=== PATIENT | male | born 1950 | race Caucasian/White ===

== ENCOUNTER 2017-03-21 06:33 | Inpatient (IN) | payer OTHER ==
[2017-03-21] MEDS: SCOPOLAMINE 1.5MG PATCH TD SCH (07:03)
[2017-03-21] MEDS ORDERED: SODIUM CHLORIDE 0.9% 1000ML 1,000 ML IV ONE (07:30)
[2017-03-21] MEDS ORDERED: SODIUM CHLORIDE 20 ML 40 ML ONE (08:26)
[2017-03-21] MEDS ORDERED: MIDAZOLAM 2 MG/2 ML SOL ONE (08:27)
[2017-03-21] MEDS ORDERED: MORPHINE SULFATE 0.5 MG/ML SOL ONE (08:27)
[2017-03-21] MEDS ORDERED: LIDOCAINE HCL 1% MPF SOL ONE (08:27)
[2017-03-21] MEDS ORDERED: PROPOFOL 500 MG/50 ML EMU IV ONE (08:27)
[2017-03-21] MEDS ORDERED: ONDANSETRON HCL 4 MG/2 ML SOL ONE (08:27)
[2017-03-21] MEDS ORDERED: DEXAMETHASONE 20 MG/5 ML (4 MG/ML SOL) ONE (08:27)
[2017-03-21] MEDS ORDERED: KETAMINE HYDROCHLORIDE 50 MG/ML SOL ONE (08:28)
[2017-03-21] MEDS ORDERED: SODIUM CHLORIDE 0.9% 1000ML 1,000 ML IV SCH (08:30)
[2017-03-21] MEDS: TRANEXAMIC ACID 100 MG/ML SOL ONE ×2 (09:56→10:39)
[2017-03-21] MEDS: BUPIVACAINE LIPOSOME 20 ML SUS ONE ×2 (09:56→10:38)
[2017-03-21] MEDS ORDERED: PHENYLEPHRINE HYDROCHLORIDE 10 MG/ML SOL ONE (10:05)
[2017-03-21] MEDS ORDERED: CEFAZOLIN SODIUM 1 GM PDS ONE ×2 (10:05→17:04)
[2017-03-21] MEDS ORDERED: PROPOFOL 10 MG/ML EMU IV ONE ×3 (10:10→10:46)
[2017-03-21] MEDS ORDERED: EPHEDRINE SULFATE 50 MG/ML SOL ONE (10:30)
[2017-03-21] MEDS ORDERED: MAGNESIUM HYDROXIDE 30 ML SUS PO PRN (10:45)
[2017-03-21] MEDS ORDERED: ONDANSETRON 4 MG ODT BU PRN (10:45)
[2017-03-21] MEDS ORDERED: ALUMINUM/MAGNESIUM 30 ML SUS PO PRN (10:45)
[2017-03-21] MEDS ORDERED: SODIUM CHLORIDE 0.9% 500 ML 500 ML IV PRN (10:45)
[2017-03-21] MEDS ORDERED: DIPHENHYDRAMINE 50 MG/ML SOL IV PRN (10:45)
[2017-03-21] MEDS ORDERED: FLEET ENEMA PR PRN (10:45)
[2017-03-21] MEDS ORDERED: TEMAZEPAM 15MG 15 MG CAP PO PRN (10:45)
[2017-03-21] MEDS ORDERED: BISACODYL 10 MG SUP PR PRN (10:45)
[2017-03-21] MEDS ORDERED: ONDANSETRON HCL 4 MG/2 ML SOL IV PRN (10:45)
[2017-03-21] MEDS ORDERED: MORPHINE SULFATE 10 MG/ML SOL IM PRN (10:45)
[2017-03-21] MEDS ORDERED: ALBUTEROL HFA 60 PUFF/INHALER INH PRN (10:51)
[2017-03-21] MEDS ORDERED: HYDROMORPHONE 1 MG/ML SYRINGE IV PRN (11:00)
[2017-03-21] MEDS: DEXTROSE/SALINE 0.45% 1,000 ML IV SCH ×2 (12:03→22:54)
[2017-03-21] MEDS: SALME INH SCH ×2 (12:55→20:42)
[2017-03-21] MEDS: FLUTICASONE INH SCH ×2 (12:55→20:42)
[2017-03-21] MEDS: SODIUM CHLORIDE 0.9% FLUSH 10 ML SOL IV SCH ×2 (13:07→19:03)
[2017-03-21] MEDS: ACETAMINOPHEN 325 MG PO SCH ×3 (13:08→20:41)
[2017-03-21] MEDS: OXYCODONE HYDROCHLORIDE 5 MG TAB PO PRN ×3 (13:08→21:15)
[2017-03-21] MEDS ORDERED: SODIUM CHLORIDE 0.9% 100 ML 100 ML IV ONE (17:04)
[2017-03-21] MEDS: CEFAZOLIN SODIUM 1 GM PDS 3 GM in SODIUM CHLORIDE 0.9% 100 ML 100 ML IV SCH (17:33)
[2017-03-21] MEDS: CARVEDILOL 12.5 MG TAB PO SCH (20:41)
[2017-03-21] MEDS: SENNOSIDES A AND B 8.6 MG TAB PO SCH (20:42)
[2017-03-21] MEDS: ALLOPURINOL 100 MG TAB PO SCH (20:42)
[2017-03-22] MEDS: FLUTICASONE INH SCH ×4 (01:41→23:46)
[2017-03-22] MEDS: SALME INH SCH ×4 (01:41→23:46)
[2017-03-22] MEDS ORDERED: CEFAZOLIN SODIUM 1 GM PDS ONE (01:42)
[2017-03-22] MEDS ORDERED: SODIUM CHLORIDE 0.9% 100 ML 100 ML IV ONE (01:42)
[2017-03-22] MEDS: CEFAZOLIN SODIUM 1 GM PDS 3 GM in SODIUM CHLORIDE 0.9% 100 ML 100 ML IV SCH (01:54)
[2017-03-22] MEDS: OXYCODONE HYDROCHLORIDE 5 MG TAB PO PRN ×7 (02:05→20:35)
[2017-03-22] MEDS: SODIUM CHLORIDE 0.9% FLUSH 10 ML SOL IV SCH ×3 (04:55→20:37)
[2017-03-22 07:22] LABS: MEAN CORPUSCULAR HGB CONC 32.8 gm/dl (32.0-36.0)
[2017-03-22] MEDS: DIAZEPAM 5 MG TAB PO PRN ×2 (08:03→17:11)
[2017-03-22] MEDS: FINASTERIDE 5 MG TAB PO SCH (08:34)
[2017-03-22] MEDS: HYDROCHLOROTHIAZIDE 25 MG TAB PO SCH (08:34)
[2017-03-22] MEDS: AMLODIPINE 5 MG TAB PO SCH (08:34)
[2017-03-22] MEDS: ALLOPURINOL 100 MG TAB PO SCH ×2 (08:35→20:34)
[2017-03-22] MEDS: CARVEDILOL 12.5 MG TAB PO SCH ×2 (08:35→20:34)
[2017-03-22] MEDS: ATORVASTATIN CALCIUM 80 MG TAB PO SCH (08:36)
[2017-03-22] MEDS: CHOLECALCIFEROL 1,000 IU TAB PO SCH (08:36)
[2017-03-22] MEDS: FLUOXETINE HYDROCHLORIDE 10 MG CAP PO SCH (08:36)
[2017-03-22] MEDS: LISINOPRIL 20 MG TAB PO SCH (08:36)
[2017-03-22] MEDS: RIVAROXABAN 10 MG TAB PO SCH (08:36)
[2017-03-22] MEDS ORDERED: ATORVASTATIN 10 MG TAB ONE (08:42)
[2017-03-22] MEDS: ACETAMINOPHEN 325 MG PO SCH ×4 (08:42→20:34)
[2017-03-22 08:46] VITALS: RESP 18
[2017-03-22] MEDS: DEXTROSE/SALINE 0.45% 1,000 ML IV SCH (14:23)
[2017-03-22] MEDS: SENNOSIDES A AND B 8.6 MG TAB PO SCH (20:34)
[2017-03-23] MEDS: OXYCODONE HYDROCHLORIDE 5 MG TAB PO PRN ×6 (00:49→20:30)
[2017-03-23] MEDS: SODIUM CHLORIDE 0.9% FLUSH 10 ML SOL IV SCH ×3 (04:26→20:29)
[2017-03-23 07:29] LABS: MEAN CORPUSCULAR HGB CONC 33.7 gm/dl (32.0-36.0)
[2017-03-23 07:32] LABS: CALCIUM 8.3 mg/dl (8.5-10.1); POTASSIUM 4.7 mMol/L (3.5-5.1)
[2017-03-23] MEDS: SALME INH SCH ×2 (08:37→20:28)
[2017-03-23] MEDS: FLUTICASONE INH SCH ×2 (08:37→20:28)
[2017-03-23] MEDS: ATORVASTATIN CALCIUM 80 MG TAB PO SCH (08:44)
[2017-03-23] MEDS: CARVEDILOL 12.5 MG TAB PO SCH ×2 (08:46→20:30)
[2017-03-23] MEDS: HYDROCHLOROTHIAZIDE 25 MG TAB PO SCH (08:47)
[2017-03-23] MEDS: AMLODIPINE 5 MG TAB PO SCH (08:47)
[2017-03-23] MEDS: FINASTERIDE 5 MG TAB PO SCH (08:48)
[2017-03-23] MEDS: FLUOXETINE HYDROCHLORIDE 10 MG CAP PO SCH (08:49)
[2017-03-23] MEDS: RIVAROXABAN 10 MG TAB PO SCH (08:50)
[2017-03-23] MEDS: ACETAMINOPHEN 325 MG PO SCH ×4 (08:50→20:29)
[2017-03-23] MEDS: CHOLECALCIFEROL 1,000 IU TAB PO SCH (08:50)
[2017-03-23] MEDS: LISINOPRIL 20 MG TAB PO SCH (08:51)
[2017-03-23] MEDS: ALLOPURINOL 100 MG TAB PO SCH ×2 (08:51→20:30)
[2017-03-23] MEDS: DIAZEPAM 5 MG TAB PO PRN ×2 (09:20→20:32)
[2017-03-23] MEDS: SENNOSIDES A AND B 8.6 MG TAB PO SCH (20:30)
[2017-03-24] MEDS: OXYCODONE HYDROCHLORIDE 5 MG TAB PO PRN ×3 (01:17→09:25)
[2017-03-24] MEDS: SODIUM CHLORIDE 0.9% FLUSH 10 ML SOL IV SCH ×2 (01:18→02:04)
[2017-03-24] MEDS: SCOPOLAMINE 1.5MG PATCH TD SCH (06:33)
[2017-03-24 06:37] VITALS: BP 120/73; PULSE 73; TEMP 98; O2SAT 92
[2017-03-24 07:28] LABS: MEAN CORPUSCULAR HGB CONC 33.7 gm/dl (32.0-36.0)
[2017-03-24 07:38] LABS: CALCIUM 8.6 mg/dl (8.5-10.1); POTASSIUM 4.5 mMol/L (3.5-5.1)
[2017-03-24] MEDS: SALME INH SCH (08:23)
[2017-03-24] MEDS: CARVEDILOL 12.5 MG TAB PO SCH (08:23)
[2017-03-24] MEDS: FLUTICASONE INH SCH (08:23)
[2017-03-24] MEDS: ATORVASTATIN CALCIUM 80 MG TAB PO SCH (08:24)
[2017-03-24] MEDS: AMLODIPINE 5 MG TAB PO SCH (08:24)
[2017-03-24] MEDS: HYDROCHLOROTHIAZIDE 25 MG TAB PO SCH (08:24)
[2017-03-24] MEDS: FLUOXETINE HYDROCHLORIDE 10 MG CAP PO SCH (08:25)
[2017-03-24] MEDS: FINASTERIDE 5 MG TAB PO SCH (08:25)
[2017-03-24] MEDS: ACETAMINOPHEN 325 MG PO SCH (08:25)
[2017-03-24] MEDS: CHOLECALCIFEROL 1,000 IU TAB PO SCH (08:26)
[2017-03-24] MEDS: RIVAROXABAN 10 MG TAB PO SCH (08:26)
[2017-03-24] MEDS: LISINOPRIL 20 MG TAB PO SCH (08:27)
[2017-03-24] MEDS: ALLOPURINOL 100 MG TAB PO SCH (08:27)
[2017-03-24] MEDS ORDERED: PNEUMOCOCCAL VACCINE 0.5 ML SOL IM ONE (09:30)
[2017-03-24] MEDS ORDERED: INFLUENZA HIGH DOSE VACCINE 0.5 ML SUS IM ONE (09:30)
== END 2017-03-24 11:40 | disposition home or self-care (01) | DRG 470 ==
LOC: UNDOADMIN 06:33 → ACUTE CARE 06:33
PROVIDERS: ADMIT Orthopaedic Surgery; ATTEND Orthopaedic Surgery
PROC: F01ZDFZ Gait and/or Balance Assessment using Assistive, Adaptive, Supportive or Protective Equipment (ICD-10-PCS; 2017-03-21)
PROC: F01ZBZZ Bed Mobility Assessment (ICD-10-PCS; 2017-03-21)
PROC: F01ZCZZ Transfer Assessment (ICD-10-PCS; 2017-03-21)
PROC: 0SRC0J9 Replacement of Right Knee Joint with Synthetic Substitute, Cemented, Open Approach (ICD-10-PCS; principal; 2017-03-21 09:30)
PROC: F02Z1ZZ Dressing Assessment (ICD-10-PCS; 2017-03-22)
PROC: F02Z0ZZ Bathing/Showering Assessment (ICD-10-PCS; 2017-03-22)
PROC: F02Z3ZZ Grooming/Personal Hygiene Assessment (ICD-10-PCS; 2017-03-22)
DX: M17.11 Unilateral primary osteoarthritis, right knee (principal); N18.3 Chronic kidney disease, stage 3 (moderate); I12.9 Hypertensive chronic kidney disease with stage 1 through stage 4 chronic kidney disease, or unspecified chronic kidney disease; Z96.653 Presence of artificial knee joint, bilateral; Z86.79 Personal history of other diseases of the circulatory system
CPT/HCPCS: 36415; 73560; 80048; 85027; 90662; 90732; 94150; 99070; J0690; J1100; J1200; J2250; J2274; J2405; A6219; A6232; G0008; J2001; J2704; Q3014

== ENCOUNTER 2017-05-02 11:14 | Outpatient (CLI) | payer OTHER ==
[2017-03-24 06:37] VITALS: O2SAT 92
== END 2017-05-02 11:15 | disposition home or self-care (01) | DRG 561 ==
LOC: CONVCARE 11:14
PROVIDERS: ATTEND Orthopaedic Surgery
DX: Z47.1 Aftercare following joint replacement surgery (principal); Z96.651 Presence of right artificial knee joint
CPT/HCPCS: 73562

== ENCOUNTER 2017-06-13 08:15 | Outpatient (CLI) | payer OTHER ==
[2017-03-24 06:37] VITALS: O2SAT 92
== END 2017-06-13 08:16 | disposition home or self-care (01) | DRG 561 ==
LOC: CONVCARE 08:15
PROVIDERS: ATTEND Orthopaedic Surgery
DX: Z47.1 Aftercare following joint replacement surgery (principal); Z96.651 Presence of right artificial knee joint
CPT/HCPCS: 73560

== ENCOUNTER 2017-11-19 14:31 | Emergency (ER) | payer MEDICARE, BC ==
[2017-11-19] MEDS ORDERED: SODIUM CHLORIDE 0.9% FLUSH 10 ML SOL IV PRN (14:38)
[2017-11-19] MEDS ORDERED: ASPIRIN 81 MG CHEWABLE CTB PO STA (14:38)
[2017-11-19] MEDS ORDERED: NITROGLYCERIN 0.4 MG TAB SL PRN (14:38)
[2017-11-19 15:09] LABS: BASOPHILS % (AUTO) 1 % (0-3); EOSINOPHILS % (AUTO) 1 % (0-9); HEMATOCRIT 42 % (39-53); HEMOGLOBIN 13.6 gm/dl (13.5-17.7); LYMPHOCYTES % (AUTO) 12.8 % (10-50); MEAN CORPUSCULAR HGB CONC 32.3 gm/dl (32.0-36.0); MEAN CORPUSCULAR VOLUME 90 fL (80-100); MONOCYTES % (AUTO) 8.4 % (0-12); NEUTROPHILS % (AUTO) 76.6 % (37-80)
[2017-11-19 15:11] LABS: APPEARANCE,URINE Clear; BILIRUBIN,URINE NEGATIVE (NEGATIVE); COLOR,URINE Yellow; GLUCOSE, URINE (UA) NEGATIVE (NEGATIVE); KETONES,URINE NEGATIVE (NEGATIVE); LEUKOCYTE ESTERASE ,URINE NEGATIVE (NEGATIVE); NITRATE,URINE NEGATIVE (NEGATIVE); OCCULT BLOOD,URINE TRACE INTACT (NEG-TRACE); PH,URINE 5.5; UROBILINOGEN,URINE 0.2 (0.2-1.0 EU)
[2017-11-19 15:22] LABS: BLOOD UREA NITROGEN 31 mg/dl (7-18); CALCIUM 8.5 mg/dl (8.5-10.1); CARBON DIOXIDE 28.1 mEq/L (21-32); CHLORIDE 105 mMol/L (98-107); CREATINE KINASE 175 U/L (39-308); CREATININE 1.18 mg/dl (0.80-1.30); GLOM FILT RATE 62 mL/min (>60); GLUCOSE 116 mg/dl (74-106); POTASSIUM 4.3 mMol/L (3.5-5.1); SODIUM 138 mMol/L (136-145); TROP I < 0.017 ng/ml (0.000-0.056)
[2017-11-19 15:36] LABS: BACTERIA RARE (< 1+); CRYSTALS NEGATIVE (0-3 AVE/HPF); EPITHELIAL CELLS 0-2 (SQUAMOUS); RBC,URINE 0-2 (0-3AV/HPF); WBC,URINE 0-2 (0-5AV/HPF)
[2017-11-19 16:53] VITALS: TEMP 98.8
[2017-11-19 16:55] VITALS: BP 139/79
[2017-11-19] MEDS ORDERED: ALBUTEROL/IPRATROPIUM 1 VIAL SOL INH ONE (17:18)
[2017-11-19] MEDS ORDERED: ALBUTEROL/IPRATROPIUM 1 VIAL SOL ONE (17:19)
[2017-11-19 17:22] VITALS: PULSE 81
[2017-11-19 17:31] VITALS: RESP 22; O2SAT 95
== END 2017-11-19 17:56 | disposition home or self-care (01) | DRG 305 ==
LOC: ED 14:31
DX: I10 Essential (primary) hypertension (principal); J44.9 Chronic obstructive pulmonary disease, unspecified; I45.10 Unspecified right bundle-branch block; R07.9 Chest pain, unspecified; J20.9 Acute bronchitis, unspecified
CPT/HCPCS: 36415; 71045; 71275; 80048; 81001; 82550; 83880; 84484; 85025; 85378; 87040; 93005; 99291; Q9967

== ENCOUNTER 2018-01-01 09:08 | Day surgery (SDC) | payer MEDICARE, BC ==
[~2018-01-01 09:08] MED LIST: LIDOCAINE HCL 1% MPF 30 SOL ONE; PROPOFOL 500 MG/50 ML EMU IV ONE
[2018-01-01] MEDS ORDERED: ONDANSETRON HCL 4 MG/2 ML SOL ONE (10:32)
[2018-01-01 10:38] VITALS: BP 143/79; PULSE 73; RESP 22; TEMP 96.7; O2SAT 96
== END 2018-01-01 10:55 | disposition home or self-care (01) | DRG 951 ==
LOC: SURG 09:08
PROVIDERS: ATTEND Surgery
DX: Z12.11 Encounter for screening for malignant neoplasm of colon (principal); D12.5 Benign neoplasm of sigmoid colon; Z86.010 Personal history of colon polyps
CPT/HCPCS: J2405; J2001; J2704

== ENCOUNTER 2018-03-27 14:41 | Outpatient (CLI) | payer MEDICARE, BC ==
[2018-01-01 10:38] VITALS: O2SAT 96
== END 2018-03-27 14:42 | disposition home or self-care (01) | DRG 566 ==
LOC: CONVCARE 14:41
PROVIDERS: ATTEND Orthopaedic Surgery
DX: Z96.651 Presence of right artificial knee joint (principal)
CPT/HCPCS: 73562

== ENCOUNTER 2018-11-06 16:21 | Emergency (ER) | payer MEDICARE, BC ==
[2018-11-06] MEDS ORDERED: SODIUM CHLORIDE 0.9% 1000ML 1,000 ML IV ONE (16:34)
[2018-11-06] MEDS ORDERED: THIAMINE 100 MG/ML 100 MG/ML SOL IV ONE (16:36)
[2018-11-06] MEDS ORDERED: FOLIC ACID 1 MG TAB PO ONE (16:37)
[2018-11-06] MEDS ORDERED: MAGNESIUM SULFATE 1 GM/2 ML SOL IV ONE (16:37)
[2018-11-06 16:49] LABS: BASOPHILS % (AUTO) 0 % (0-3); EOSINOPHILS % (AUTO) 2 % (0-9); HEMATOCRIT 43 % (39-53); HEMOGLOBIN 13.6 gm/dl (13.5-17.7); LYMPHOCYTES % (AUTO) 18.7 % (10-50); MEAN CORPUSCULAR HEMOGLOBIN 29.2 pg (27.0-32.0); MEAN CORPUSCULAR HGB CONC 31.4 gm/dl (32.0-36.0); MEAN CORPUSCULAR VOLUME 93 fL (80-100); MONOCYTES % (AUTO) 8.7 % (0-12); NEUTROPHILS % (AUTO) 70.5 % (37-80)
[2018-11-06] MEDS ORDERED: SODIUM CHLORIDE 0.9% FLUSH 10 ML SOL IV PRN (16:50)
[2018-11-06 16:57] LABS: CALCIUM 8.7 mg/dl (8.5-10.1); CARBON DIOXIDE 23.1 mEq/L (21-32); CREATININE 1.18 mg/dl (0.80-1.30); INR 1.02 (0.86-1.12)
[2018-11-06 16:59] LABS: ALCOHOL 0.25 gm/dl (0.000-0.08)
[2018-11-06] MEDS ORDERED: FOLIC ACID 1 MG TAB ONE (17:07)
[2018-11-06] MEDS ORDERED: THIAMINE 100 MG/ML 100 MG/ML SOL ONE (17:10)
[2018-11-06] MEDS ORDERED: MAGNESIUM SULFATE 5 GM/10 ML SOL ONE (17:11)
[2018-11-06 17:33] VITALS: TEMP 97.5
[2018-11-06 19:41] VITALS: BP 123/65; PULSE 72; RESP 18; O2SAT 96
== END 2018-11-06 19:23 | disposition home or self-care (01) | DRG 605 ==
LOC: ED 16:21
DX: S00.83XA Contusion of other part of head, initial encounter (principal); F10.129 Alcohol abuse with intoxication, unspecified; Y90.8 Blood alcohol level of 240 mg/100 ml or more; W01.0XXA Fall on same level from slipping, tripping and stumbling without subsequent striking against object, initial encounter
CPT/HCPCS: 36415; 70450; 71045; 80048; 80307; 85025; 85610; 93005; 96365; 96374; 96375; 99284; 99285; G0390; J3475; A9270-GY; J3411